=== PATIENT | female | born 1970 | race Hispanic/Latino ===

== ENCOUNTER 2018-09-07 07:40 | Emergency (ER) | payer BC ==
[2018-09-07] MEDS ORDERED: ATIVAN IM STA (08:13)
--- NOTE | 2018-09-07 08:14 | Emergency Department Report ---
ED General Adult HPI - General Chief complaint: Fall Stated complaint: LFT THUMB INJURED Time Seen by Provider: 09/07/18 08:04 Source: patient, RN notes reviewed Mode of arrival: Ambulatory Limitations: No Limitations - History of Present Illness Initial comments: This is a 47-year-old female, right-hand dominant, reports that she is not . Patient reports that last night, she had a few alcoholic drinks, and at 1:30 in the morning, tripped, landed on her left face, and left hand. She has pain in the proximal bridge of her nose, and her left thumb. She has some midline neck pain, chest pain, abdominal pain, shortness of breath, weakness, numbness or ataxia. Her left thumb pain as sharp, burning, aching, increases with palpation, decreases with rest, it does not radiate anywhere. Facial pain is achy in nature, increases with palpation, decreases with rest, and does not radiate anywhere. The patient indicates that she is not currently . -: Sudden Location: face, left, upper extremity Radiation: non-radiation Quality: aching Consistency: other Improves with: other Worsens with: other Associated Symptoms: other (facial pain, nasal swelling, left hand pain, left thumb). denies: confusion, chest pain, cough, diaphoresis, fever/chills, headaches, loss of appetite, malaise, nausea/vomiting, rash, seizure, shortness of breath, syncope, weakness - Related Data Previous Rx's Medication Instructions Recorded Last Taken Type Acetaminophen [Pain Relief] 500 mg PO Q6HR PRN #30 tablet 09/07/18 Unknown Rx Ibuprofen [Motrin] 400 mg PO Q8H PRN #30 tablet 09/07/18 Unknown Rx Allergies Allergy/AdvReac Type Severity Reaction Status Date / Time Penicillins Allergy Unknown Verified 09/07/18 07:44 ED Review of Systems ROS: Stated complaint: LFT THUMB INJURED Other details as noted in HPI Constitutional: denies: fever Eyes: denies: vision change ENT: other (proximal nasal pain). denies: ear pain, throat pain, epistaxis Respiratory: denies: cough Cardiovascular: denies: chest pain Gastrointestinal: denies: abdominal pain, nausea, vomiting Musculoskeletal: joint swelling, arthralgia, myalgia. denies: back pain Skin: change in color (ecchymosis to hand) Neurological: denies: weakness, numbness, paresthesias, confusion Psychiatric: anxiety ED Past Medical Hx - Past Medical History Previous Medical History?: No - Surgical History Past Surgical History?: No - Social History Smoking Status: Current Every Day Smoker Substance Use Type: Alcohol - Medications Home Medications: Home Medications Medication Instructions Recorded Confirmed Last Taken Type Acetaminophen [Pain Relief] 500 mg PO Q6HR PRN #30 tablet 09/07/18 Unknown Rx Ibuprofen [Motrin] 400 mg PO Q8H PRN #30 tablet 09/07/18 Unknown Rx ED Physical Exam - General Limitations: No Limitations General appearance: alert, anxious, in distress - Head Head exam: Present: normocephalic, other (on the proximal aspect of the nose, there is tenderness, swelling, and ecchymosis. There is no nasal septal hematoma) - Eye Eye exam: Present: normal appearance, PERRL, EOMI, other (visual acuity intact to finger counting, color perception, reading at a close distance). Absent: nystagmus - ENT ENT exam: Present: normal orophraynx, mucous membranes moist, normal external ear exam - Neck Neck exam: Present: normal inspection, full ROM. Absent: tenderness, meningismus - Respiratory Respiratory exam: Present: normal lung sounds bilaterally. Absent: respiratory distress - Cardiovascular Cardiovascular Exam: Present: normal rhythm, tachycardia, normal heart sounds. Absent: systolic murmur, diastolic murmur, rubs, gallop - GI/Abdominal GI/Abdominal exam: Present: soft. Absent: distended, tenderness, guarding, rebound, rigid, pulsatile mass - Extremities Exam Extremities exam: Present: full ROM, tenderness (in the left hand, there is dorsal lateral ecchymosis, and there appears to be a proximal thumb subluxation. Range of motion is intact at the interphalangeal joint.), other (2+ pulses noted in the bilateral upper, lower extremities. Compartments soft. No long bony tenderness. The pelvis is stable.) - Back Exam Back exam: Present: normal inspection, full ROM. Absent: tenderness, CVA tenderness (R), paraspinal tenderness, vertebral tenderness - Neurological Exam Neurological exam: Present: alert, oriented X3, other (Extraocular movements intact. Tongue midline. No facial droop. Facial sensation intact to light touch in the V1, V2, V3 distribution bilaterally. 5 and 5 strength in 4 extremities.. Sensation is intact to light touch in 4 extremities.). Absent: motor sensory deficit - Psychiatric Psychiatric exam: Present: anxious - Skin Skin exam: Present: warm, abrasion, ecchymosis, other (left dorsal lateral hand ecchymosis, abrasion) ED Course Vital Signs 09/07/18 09/07/18 07:44 09:34 Temperature 98.5 F Pulse Rate 120 H 110 H Respiratory 20 16 Rate Blood Pressure 153/96 Blood Pressure 111/80 [Right] O2 Sat by Pulse 100 99 Oximetry - Reevaluation(s) Reevaluation #1: 09/07/18 10:31 Differential diagnosis, including but not limited to: Anxiety, facial injury, soft tissue injury, thumb fracture, thumb dislocation, thumb subluxation Assessment and plan: 47-year-old female who reports a mechanical fall 9 hours ago in the context of alcohol consumption. The patient is quite anxious at this time, but she is clinically sober at this time, and she exhibits decision-making capacity. Patient is clinically sober at this time. The cervical spine is cleared through [facility] and [place] c spine rule The patient reports that she is not . Her anxiety was much improved with Ativan. Noncontrast CT scan of the brain, facial bones demonstrates no significant traumatic abnormality or intracranial injury. X-ray of the left hand demonstrated a thumb subluxation at the metacarpophalangeal joint, which was corrected with direct manipulation, after IV fentanyl. Resting heart rate 100-104 beats per minutes, patient is able to oppose the thumb, and has minimal snuffbox tenderness. The patient will be placed in a thumb spica, she is instructed to be careful with alcohol consumption in the future, and she will be discharged to follow up with outpatient orthopedics and/or hand specialist. Return precautions have b een reviewed. Patient family endorsed understanding and endorse readiness for discharge at this point in time. Reevaluation #2: 09/07/18 10:39 Resting heart rate currently 100-104 bpm, much improved when compared to prior. Tachycardia likely secondary to underlying anxiety. - Orthopedic Joint Reduction Joint #1 Consent Obtained: verbal consent, emergent situation Time Out Performed: Yes Side: right Joint Reduction Location: finger Analgesia: other (IV fentanyl and ketorolac) Technique Used: direct manipulation Post-Reduction Neuro Exam: intact Post-Reduction Vascular Exam: intact Post Reduction X-Ray Obtained: Yes Post Reduction X-Ray Results: reduced Splint Applied: Yes Patient Tolerated Procedure: well - Orthopedic Splinting/Casting Injury #1 Side: right Upper Extremity Injury Location: wrist, hand, finger Upper Extremity Immobilizer: thumb spica ED Medical Decision Making - Lab Data Vital Signs 09/07/18 09/07/18 07:44 09:34 Temperature 98.5 F Pulse Rate 120 H 110 H Respiratory 20 16 Rate Blood Pressure 153/96 Blood Pressure 111/80 [Right] O2 Sat by Pulse 100 99 Oximetry - Radiology Data Radiology results: report reviewed, image reviewed [facility] [address] [place] [address] XRay Report Signed Patient: BRYAN HOOKS MR#: [id number] : 1970 Acct:[id number] Age/Sex: 47 / F ADM Date: 09/07/18 Loc: ED Attending Dr: Ordering Physician: CARRI LEMONS MD Date of Service: 09/07/18 Procedure(s): XR hand 3+V LT Accession Number(s): [id number] cc: CARRI LEMONS MD Fluoro Time In Minutes: FINAL REPORT EXAM: XR HAND 3+V LT HISTORY: left hand pain fall TECHNIQUE: Three views of the left hand PRIORS: None. FINDINGS: The thumb appears laterally subluxed at the MCP joint. Correlate clinically. There is no evidence of acute fracture. No focal osseous lesion otherwise seen. IMPRESSION: The thumb appears laterally subluxed at the MCP joint. Correlate clinically. No other significant abnormality. Transcribed By: [facility] Dictated By: BAL BARNETT MD Electronically Authenticated By: BAL BARNETT MD Signed Date/Time: 09/07/[address] scan of the brain is negative for acute disease. Noncontrast CT scan of the facial bones is negative for acute disease. X-ray of the wrist, hand demonstrates a thumb subluxation, at the metacarpal joint, otherwise no acute disease. Postreduction films demonstrated adequate reduction of the subluxation. Critical care attestation.: If time is entered above; I have spent that time in minutes in the direct care of this critically ill patient, excluding procedure time. ED Disposition Clinical Impression: Subluxation of left thumb, Nasal contusion, History of fall Disposition: DC-01 TO HOME OR SELFCARE Is pt being admited?: No Does the pt Need Aspirin: No Condition: Good Instructions: Finger Sprain (ED), Finger Dislocation (ED) Additional Instructions: Keep the left thumb splint in place and follow-up with an orthopedic physician within the next 5-7 days. Not following up as recommended may result in undiagnosed/occult injury to thumb ligaments, and or scaphoid bone, wrist bone, which may put the patient at risk for long-term pain, arthritis, and disability. Please make certain to consume alcohol responsively, and do not drive, operate motor vehicles, or make important decisions if and when consuming alcohol. Please follow up with the primary care doctor as scheduled within the next 2-3 months. Take the pain medication as needed rest directed, and return to the ER right away with new pain, worsened pain, migration of pain, projectile vomiting, change in mental status, confusion, inability to speak, inability to breathe, new, worsening or different symptoms. Referrals: OLEKSANDR MAYBERRY MD [Staff Physician] - 7-10 days [facility] [Provider Group] - 7-10 days
[2018-09-07] MEDS ORDERED: SUBLIMAZE ONE (09:23)
--- NOTE | 2018-09-07 09:25 | XRay Report ---
FINAL REPORT EXAM: XR HAND 3+V LT HISTORY: left hand pain fall TECHNIQUE: Three views of the left hand PRIORS: None. FINDINGS: The thumb appears laterally subluxed at the MCP joint. Correlate clinically. There is no evidence of acute fracture. No focal osseous lesion otherwise seen. IMPRESSION: The thumb appears laterally subluxed at the MCP joint. Correlate clinically. No other significant abn ormality.
--- NOTE | 2018-09-07 09:26 | XRay Report ---
FINAL REPORT EXAM: XR WRIST 3+V LT HISTORY: adrián, Patient stated that she fell last night and injured left hand. Pain and bruising at base of left 1st digit. wanted dedicated scaphoid view on left wrist. TECHNIQUE: Left wrist, five views PRIORS: None. FINDINGS: There is no fracture seen. There is no dislocations seen. The there is no acute focal osseous lesion seen involving the wrist. The thumb appears laterally subluxed at the MCP joint. Correlate clinically . IMPRESSION: There is no acute abnormality identified at the wrist. Some appears laterally subluxed at MCP joint. Correlate clinically.
[2018-09-07 09:35] VITALS: BP 111/80
[2018-09-07] MEDS ORDERED: SUBLIMAZE IV ONE (09:35)
--- NOTE | 2018-09-07 09:41 | Cat Scan Report ---
FINAL REPORT EXAM: CT HEAD/BRAIN WO CON HISTORY: etoh hx fall TECHNIQUE: CT of the head was performed. No intravenous contrast was administered. PRIORS: None. FINDINGS: There is no evidence of intracranial hemorrhage. There is no edema, mass effect or midline shift. There are no abnormal extra-axial fluid collections. The ventricles are appropriate for brain volume. There is no skull fracture seen. The visualized aspects of the sinuses are clear. IMPRESSION: There is no acute intracranial abnormality identified.
--- NOTE | 2018-09-07 09:43 | Cat Scan Report ---
FINAL REPORT EXAM: CT FACIAL BONES WO CON HISTORY: etoh hx fall TECHNIQUE: CT of facial bones performed. Axial images and coronal and sagittal reformatted images we re obtained. PRIORS: None. FINDINGS: There is no facial fracture identified. The paranasal sinuses are clear except for minimal mucosal th ickening in left maxillary sinus. IMPRESSION: There is no significant abnormality identified.
[2018-09-07] MEDS ORDERED: TORADOL IV ONE (09:50)
--- NOTE | 2018-09-07 11:03 | XRay Report ---
FINAL REPORT EXAM: XR FINGER(S) 2+V LT HISTORY: s/p left thumb reduction TECHNIQUE: Three views of the left thumb. PRIORS: Earlier today. FINDINGS: No fracture. The 1st MCP joint dislocation has been relocated. Normal mineralization. No soft tissue abnormality. Mild degenerative changes of the 1st interphalangeal joint are seen. IMPRESSION: Relocation of the 1st MCP joint dislocation.
== END 2018-09-07 11:22 | disposition home or self-care (01) ==
LOC: ED 07:40
DX: S63.112A Subluxation of metacarpophalangeal joint of left thumb, initial encounter (principal); S00.33XA Contusion of nose, initial encounter; F17.200 Nicotine dependence, unspecified, uncomplicated; Z88.0 Allergy status to penicillin; W18.30XA Fall on same level, unspecified, initial encounter; Y93.89 Activity, other specified; Y99.8 Other external cause status; Y92.89 Other specified places as the place of occurrence of the external cause
CPT/HCPCS: 26700; 70450; 70486; 73110; 73130; 73140; 96372; 99284; J1885; J2060; J3010; 96374; 96375